=== PATIENT | female | born 1975 | race Two or more races ===

== ENCOUNTER 2017-06-30 05:20 | Day surgery (SDC) | payer OTHER ==
[2017-06-30] MEDS ORDERED: ULTRACET PO (09:16)
[2017-06-30] MEDS ORDERED: ZOFRAN ODT4 MG PO (09:16)
[2017-06-30] MEDS ORDERED: MIRALAX17 GM PO (09:16)
== END 2017-06-30 11:10 | disposition home or self-care (01) ==
LOC: CIR.AMB 05:20
DX: K80.10 Calculus of gallbladder with chronic cholecystitis without obstruction (principal)